=== PATIENT | male | born 1970 | race Caucasian/White ===

== ENCOUNTER 2017-05-09 12:45 | Outpatient (RCR) | payer OTHER ==
[~2017-05-09 12:45] MED LIST: NEXIUM 20MG20 MG PO
== END 2017-05-10 11:12 | disposition still patient (30) ==
LOC: WSPT 12:45
DX: M54.6 Pain in thoracic spine (principal); M25.512 Pain in left shoulder
CPT/HCPCS: G0283-GP; G8984-GP; G8985-GP; G8986-GP

== ENCOUNTER 2020-03-18 16:00 | Outpatient (RCR) | payer OTHER | END 2020-04-08 | disposition home or self-care (01) | LOC: MKS.ESL.PT | DX: M19.012 Primary osteoarthritis, left shoulder (principal); M75.122 Complete rotator cuff tear or rupture of left shoulder, not specified as traumatic ==

== ENCOUNTER → 2021-03-09 | Outpatient (CLI) | payer OTHER | LOC: COL.RAD 12:13 | DX: M25.78 Osteophyte, vertebrae (principal); M48.02 Spinal stenosis, cervical region; G43.109 Migraine with aura, not intractable, without status migrainosus; M54.2 Cervicalgia; R20.2 Paresthesia of skin; M79.601 Pain in right arm; M79.602 Pain in left arm ==